=== PATIENT | female | born 2000 | race African-American/Black ===

== ENCOUNTER 2025-02-10 11:57 | Emergency (ER) | payer MEDICAID, OTHER ==
[~2025-02-10] VITALS: Ht 162.6 cm; Wt 56.6 kg
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
[2025-02-10] MEDS ORDERED: NAPR-746 PO (13:17)
[2025-02-10] MEDS ORDERED: CEPH500C PO (13:17)
[2025-02-10 13:22] VITALS: BP 140/93; PULSE 97; RESP 18; TEMP 98; O2SAT 99
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
== END 2025-02-10 13:25 | disposition home or self-care (01) ==
LOC: ER 11:57
DX: S01.81XA Laceration without foreign body of other part of head, initial encounter (principal); S01.531A Puncture wound without foreign body of lip, initial encounter; Z79.899 Other long term (current) drug therapy; Y08.89XA Assault by other specified means, initial encounter; Y93.89 Activity, other specified; Y92.89 Other specified places as the place of occurrence of the external cause; Y99.8 Other external cause status
CPT/HCPCS: 12051; 70450